=== PATIENT | female | born 1970 | race Caucasian/White ===

== ENCOUNTER 2018-06-07 07:13 | Day surgery (SDC) | payer MEDICARE ==
[2018-06-06 10:02] VITALS: BMI 21.7
[2018-06-07] MEDS ORDERED: Lidocaine 1% w/Epinephrine 1:100K 30 ML VIAL ONE (08:11)
[2018-06-07] MEDS ORDERED: Midazolam HCl 2 mg/2 ml Vial ONE ×2 (08:19→08:39)
[2018-06-07] MEDS ORDERED: methylPREDNISolone Sod Succ/PF 125 MG/2 ML VIAL ONE (08:19)
[2018-06-07] MEDS ORDERED: diphenhydrAMINE 50 MG/ML VIAL ONE (08:19)
[2018-06-07] MEDS ORDERED: Sodium Chloride 0.9% 0 ML ONE (08:24)
[2018-06-07] MEDS ORDERED: Sodium Chloride 0.9% 10 ML ONE (08:25)
[2018-06-07] MEDS ORDERED: Fentanyl 100 MCG/2 ML VIAL ONE (08:40)
--- NOTE | 2018-06-07 12:44 | EKG ---
Test Reason : PREOP Blood Pressure : / mmHG Vent. Rate : 066 BPM Atrial Rate : 066 BPM P-R Int : 170 ms QRS Dur : 096 ms QT Int : 400 ms P-R-T Axes : 076 070 072 degrees QTc Int : 419 ms Normal sinus rhythm Normal ECG No previous ECGs available Confirmed by DR. Jacquelyn BISHOP ([id number]) on 06/07/2018 12:43:57 PM Referred By: RAKEL Confirmed By:DR. Jacquelyn BISHOP
--- NOTE | 2018-06-08 14:20 | OP ---
DATE OF PROCEDURE: 06/12/2018 PREOPERATIVE DIAGNOSES: 1. Right tympanic membrane perforation. 2. Right conductive hearing loss. POSTOPERATIVE DIAGNOSES: 1. Right tympanic membrane perforation. 2. Right conductive hearing loss. PROCEDURES: Right fat graft myringoplasty. SURGEON: Rashaun Saha M.D. ESTIMATED BLOOD LOSS: 0 mL COMPLICATIONS: None. ANESTHESIA: Mask. PROCEDURE IN DETAIL: The patient was taken to the operating room. Mask anesthesia was obtained by [facility] Anesthesia staff. 0.1 mL of 1% lidocaine with 1:100,000 epinephrine was injected in the posterior aspect of the right ear lobe after it was prepped and draped for standard surgical procedure. Follo wing this, the operating microscope was used to visualize the right tympanic membrane. A small perfo ration was noted. The middle ear mucosa was noted to be healthy. Using a Og needle and straight cup forceps, the edges of this perforation were gently rimmed, resulted in a 20% perforation of the e ardrum. Following this, a small incision was made in the posterior aspect of the right earlobe and a small piece of fat was harvested and the incision was closed using chromic gut stitch. Following th is, the fat was then placed within the tympanic membrane perforation in a dumbbell fashion. The cresencio ent tolerated the procedure well.
== END 2018-06-07 10:29 | disposition home or self-care (01) ==
LOC: SDC 07:13
PROVIDERS: ATTEND Otolaryngology Plastic Surgery within the Head & Neck
PROC: 09R777Z Replacement of Right Tympanic Membrane with Autologous Tissue Substitute, Via Natural or Artificial Opening (ICD-10-PCS; principal; 2018-06-07)
DX: S09.21XA Traumatic rupture of right ear drum, initial encounter (principal); J32.9 Chronic sinusitis, unspecified; G43.909 Migraine, unspecified, not intractable, without status migrainosus; K21.9 Gastro-esophageal reflux disease without esophagitis; I10 Essential (primary) hypertension; I47.1 Supraventricular tachycardia; M06.9 Rheumatoid arthritis, unspecified; M32.9 Systemic lupus erythematosus, unspecified; E89.0 Postprocedural hypothyroidism; M26.603 Bilateral temporomandibular joint disorder, unspecified; H91.8X9 Other specified hearing loss, unspecified ear; J30.9 Allergic rhinitis, unspecified; J34.3 Hypertrophy of nasal turbinates; Z79.52 Long term (current) use of systemic steroids; Z79.891 Long term (current) use of opiate analgesic; Z79.899 Other long term (current) drug therapy; Z88.0 Allergy status to penicillin; Z88.2 Allergy status to sulfonamides; Z88.8 Allergy status to other drugs, medicaments and biological substances; Z88.5 Allergy status to narcotic agent; Z91.048 Other nonmedicinal substance allergy status; Z98.890 Other specified postprocedural states
CPT/HCPCS: 36415; 85014; 93005; 93010; J1200; J2001; J2250; J2930; J3010; J7050